=== PATIENT | female | born 1985 | race Caucasian/White ===

== ENCOUNTER 2017-04-18 15:13 | Observation (INO) ==
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
[2017-04-18] MEDS ORDERED: 0.9 % Sodium Chloride 1,000 ML IVC ONE (15:22)
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
[2017-04-18 16:06] LABS: Prothrombin Time 10.9 Seconds (9.4-12.1)
[2017-04-18] MEDS ORDERED: Ondansetron 4 MG/2 ML VIAL IVP ONE (16:06)
[2017-04-18 16:07] LABS: Basophils % 0.3 %; Eosinophils # 0.2 K/mcL (0.0-0.6); Hematocrit 35.2 % (35.3-44.9); Hemoglobin 11.7 g/dL (11.5-15.4); Immature Granulocytes % 0.6 % (0-4); Lymphocytes # 1.7 K/mcL (0.6-4.6); Lymphocytes % 10.8 %; Mean Corpuscular HGB Conc 33.2 g/dL (31.6-35.5); Mean Corpuscular Hemoglobin 30.4 pg (28.0-33.3); Mean Corpuscular Volume 91.4 fL (83.0-100.0); Mean Platelet Volume 11.1 fL (9.4-12.4); Monocytes # 0.9 K/mcL (0.0-1.3); Monocytes % 5.8 %; Neutrophils # 12.6 K/mcL (1.6-8.9); Platelet Count 183 K/mcL (140-400); Red Blood Count 3.85 M/mcL (3.82-4.97); Red Cell Distribution Width 13.5 % (11.5-14.5); Segmented Neutrophils % 81.5 %
[2017-04-18 16:16] LABS: Alanine Aminotransferase 65 Units/L (7-52); Albumin 3.5 g/dL (3.5-5.7); Albumin/Globulin Ratio 1.3 (1.1-2.2); Alkaline Phosphatase 167 Units/L (34-104); Aspartate Amino Transferase 60 Units/L (13-39); BUN/Creatinine Ratio 11 (6-26); Bilirubin,Total 0.4 mg/dL (0.3-1.0); Blood Urea Nitrogen 6 mg/dL (6-20); Calcium 8.7 mg/dL (8.6-10.3); Carbon Dioxide 23 mEq/L (23-29); Chloride 105 mEq/L (98-107); Globulin 2.8 g/dL (2.4-3.5); Glucose 78 mg/dL (70-105); Osmolality,Calculated 274 (280-300); Sodium 134 mEq/L (136-145); Total Protein 6.3 g/dL (6.4-8.9); eGFR For African Americans > 60 (> 60); eGFR For Non-African Americans > 60 (> 60)
[2017-04-18 16:22] LABS: Ethanol < 10 mg/dL (0-10)
[2017-04-18 16:40] LABS: Bilirubin,Urine Small (Negative); Blood,Urine Negative (Negative); Clarity,Urine Clear (Clear); Color,Urine Dark Yellow (Yellow); Glucose,Urine (UA) Normal (Normal); Ketones,Urine Negative (Negative); Leukocyte Esterase,Urine Negative (Negative); Nitrite,Urine Negative (Negative); PH,Urine 5.5 pH Units (5.0-8.0); Protein,Urine 30 mg/dL (Neg-Trace); Specific Gravity,Urine 1.028 (1.010-1.025); Urobilinogen,Urine Normal (Normal)
[2017-04-18 16:43] LABS: Amphetamine Screen,Urine Negative ng/mL (Cutoff=1000); Barbiturate Screen,Urine Negative ng/mL (Cutoff=200); Benzodiazepines Screen,Urine Negative ng/mL (Cutoff=200); Cannabinoid Screen,Urine Positive ng/mL (Cutoff = 50); Cocaine Screen,Urine Negative ng/mL (Cutoff= 300); Opiate Screen,Urine Positive ng/mL (Cutoff=300); Phencyclidine Screen,Urine Negative ng/mL (Cutoff=25)
[2017-04-18 16:46] LABS: Bacteria,Urine None Seen per hpf (None-Few); RBC,Urine 0-3 per hpf (0-3); Squamous Epithelial Cell,Urine Many per lpf (None-Few)
[2017-04-18 16:56] LABS: Granular Casts,Urine Few per lpf (None Seen); Hyaline Casts,Urine Few per lpf (None-Few)
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
[2017-04-18] MEDS ORDERED: *HR* Labetalol 100 MG/20 ML MDV IVP ONE (17:41)
[2017-04-18] MEDS ORDERED: HydrOXYzine 100 MG/2 ML VIAL IM ONE (17:54)
[2017-04-18 17:58] LABS: Magnesium 1.9 mg/dL (1.6-2.6); Uric Acid 2.7 mg/dL (2.3-7.6)
[2017-04-18 18:33] VITALS: BP 131/93
[2017-04-18 18:56] LABS: Phenytoin (Dilantin) < 0.5 mcg/mL (10.0-20.0)
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
== END 2017-04-18 20:39 | disposition home or self-care (01) ==
LOC: 1NENULAB 15:13 → EMEROO 15:13 → 1NENULAB 18:50

== ENCOUNTER 2017-12-25 21:23 | Observation (INO) ==
[2017-12-25] MEDS ORDERED: Ondansetron 4 MG/2 ML VIAL IVP ONE (22:19)
[2017-12-25] MEDS ORDERED: 0.9 % Sodium Chloride 1,000 ML IVC ONE (22:19)
[2017-12-25] MEDS ORDERED: *HR* FentaNYL (PF) 100 MCG/2 ML VIAL IVP ONE (22:19)
[2017-12-25] MEDS ORDERED: Isovue-370 500 ML INFUS..BTL IV ONE (22:22)
[2017-12-25] MEDS ORDERED: *HR* LORazepam 2 MG/ML VIAL IVP ONE (22:43)
[2017-12-25 23:42] LABS: Basophils % 0.2 %; Eosinophils % 0.1 %; Hematocrit 31.1 % (35.3-44.9); Hemoglobin 10.3 g/dL (11.5-15.4); Immature Granulocytes % 0.2 % (0-4); Lymphocytes # 1.2 K/mcL (0.6-4.6); Lymphocytes % 9.6 %; Mean Corpuscular HGB Conc 33.1 g/dL (31.6-35.5); Mean Corpuscular Volume 87.6 fL (83.0-100.0); Mean Platelet Volume 10.6 fL (9.4-12.4); Monocytes # 0.7 K/mcL (0.0-1.3); Monocytes % 5.7 %; Neutrophils # 10.3 K/mcL (1.6-8.9); Platelet Count 247 K/mcL (140-400); Red Blood Count 3.55 M/mcL (3.82-4.97); Red Cell Distribution Width 15.3 % (11.5-14.5); Segmented Neutrophils % 84.2 %
[2017-12-25 23:59] LABS: INR 1.1; Prothrombin Time 12.3 Seconds (9.4-12.1)
[2017-12-26 00:02] LABS: Activated Partial Thrombo Time 25.1 Seconds (26.0-36.0); Alanine Aminotransferase 33 Units/L (7-52); Albumin 3.8 g/dL (3.5-5.7); Albumin/Globulin Ratio 1.4 (1.1-2.2); Alkaline Phosphatase 62 Units/L (34-104); Aspartate Amino Transferase 34 Units/L (13-39); BUN/Creatinine Ratio 11 (6-26); Bilirubin,Direct 0.1 mg/dL (0.0-0.2); Bilirubin,Indirect 0.4 mg/dL (0.0-1.2); Bilirubin,Total 0.5 mg/dL (0.3-1.0); Blood Urea Nitrogen 10 mg/dL (6-20); Calcium 9.5 mg/dL (8.6-10.3); Carbon Dioxide 27 mEq/L (23-29); Chloride 104 mEq/L (98-107); Globulin 2.7 g/dL (2.4-3.5); Glucose 128 mg/dL (70-105); Lipase 16 Units/L (11-82); Osmolality,Calculated 283 (280-300); Potassium 4.4 mEq/L (3.5-5.1); Sodium 136 mEq/L (136-145); Total Protein 6.5 g/dL (6.4-8.9); eGFR For Non-African Americans > 60 (> 60)
[2017-12-26 00:03] LABS: Troponin I < 0.03 ng/mL (< 0.04)
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
--- NOTE | 2017-12-26 03:04 | Event Note ---
Date of Encounter: 12/26/17 Time of Encounter: 03:02 Called from the emergency room regarding patient who had a laparoscopic cholecystectomy be performed on 12/25/2017 a he presented with worsening abdominal pain. CT scan showed evidence of fluid in the pelvis and blood with clots noted and subhepatic space. Systolic blood pressure 100-110s and heart rate in the 70s. Laboratory studies shows a hemoglobin is 10.3. CT scan was performed with IV contrast and that was not a CTA protocol there was no evidence of active extravasation. Operative report demonstrates that the patient also had a liver biopsy due to nodular appearing liver. Likely the blood is secondary to bleeding from the gallbladder fossa or from the biopsy site but does not appear to be arterial in nature. Symptomatically stable and transported to the floor will be monitored. Repeat CBC and BMP at 5 AM. We will make Dr. Rodriguez aware this morning of the patient's re-presentation
[2017-12-26] MEDS ORDERED: 0.9 % Sodium Chloride 1,000 ML IVC ONE (03:06)
[2017-12-26] MEDS ORDERED: *HR* LORazepam 0.5 MG TABLET PO PRN (03:11)
[2017-12-26] MEDS ORDERED: Ondansetron 4 MG/2 ML VIAL IVP PRN (03:12)
[2017-12-26 06:31] LABS: Basophils % 0.2 %; Eosinophils # 0.1 K/mcL (0.0-0.6); Eosinophils % 0.6 %; Immature Granulocytes % 0.4 % (0-4); Lymphocytes # 1.9 K/mcL (0.6-4.6); Lymphocytes % 18.9 %; Mean Corpuscular Hemoglobin 28.1 pg (28.0-33.3); Mean Corpuscular Volume 87.7 fL (83.0-100.0); Mean Platelet Volume 10.9 fL (9.4-12.4); Monocytes # 0.6 K/mcL (0.0-1.3); Monocytes % 5.6 %; Neutrophils # 7.4 K/mcL (1.6-8.9); Platelet Count 220 K/mcL (140-400); Red Blood Count 2.85 M/mcL (3.82-4.97); Red Cell Distribution Width 15.9 % (11.5-14.5); Segmented Neutrophils % 74.3 %
[2017-12-26 06:55] LABS: BUN/Creatinine Ratio 13 (6-26); Blood Urea Nitrogen 9 mg/dL (6-20); Calcium 8.5 mg/dL (8.6-10.3); Carbon Dioxide 23 mEq/L (23-29); Chloride 109 mEq/L (98-107); Glucose 100 mg/dL (70-105); Osmolality,Calculated 285 (280-300); Potassium 4.2 mEq/L (3.5-5.1); Sodium 138 mEq/L (136-145); eGFR For Non-African Americans > 60 (> 60)
[2017-12-26] MEDS: 0.9 % Sodium Chloride 1,000 ML IVC SCH ×2 (07:55→11:19)
--- NOTE | 2017-12-26 07:59 | General Surg History&Physical ---
<Joshua Rendon R - Last Filed: 12/26/17 07:44> Date of Encounter: 12/26/17 Time of Encounter: 07:44 Assessment and Plan (1) Abdominal pain Current Visit: Yes Status: Acute The assessment and plan as outlined above was discussed with the patient and/or family members who expressed understanding and agreement. All questions were answered. CT scan of the abdomen and pelvis does reveal a moderate to large volume of acute hemorrhage in the abdomen. Will carefully follow patient and reassess. Plan: Comfort care and pain management IV fluids NPO prn antiemetic prn anxiolytic PPI prophylaxis Qualifiers: Abdominal location: generalized Qualified Code(s): R10.84 - Generalized abdominal pain (2) Acute blood loss anemia Current Visit: Yes Status: Acute The assessment and plan as outlined above was discussed with the patient and/or family members who expressed understanding and agreement. All questions were answered. Hemoglobin and hematocrit have decreased since both preoperative and last night ED evaluation. Most recent H/H is 8.0/25.0, vital signs are stable and within normal limits at present, patient is not symptomatic denies chest pain, dizziness, shortness of breath. Plan: Serial H/H Regular vital sign assessments Type and screen Will follow closely (3) DVT prophylaxis Current Visit: Yes Status: Acute The assessment and plan as outlined above was discussed with the patient and/or family members who expressed understanding and agreement. All questions were answered. EPCDs Ambulation as tolerated History of Present Illness Chief complaint: abdominal pain HPI: Ms. Connell is a 32 year old female with a history of hepatitis presenting for evaluation of abdominal pain. Patient did undergo outpatient laparoscopic cholecystectomy with Dr. Rodriguez yesterday on 12/25/2017. Liver biopsies were performed during operation due to nodular appearing liver. Hemostasis was obtained intraoperatively. Patient reports that she is only able to take 1 dose of the prescribed oxycodone and did experience persistent pain, stating she was unable to tolerate the pain at home. CT abdomen and pelvis was performed in the ED and did reveal moderate to large amount of acute hemorrhage within the abdomen and pelvis. ED hemoglobin and hematocrit were 10.3/31.1 respectively. LFTs and lipase were within normal limits. Patient did receive IV fentanyl and lorazepam in the ED. Patient was admitted to Dr. Rodriguez for further evaluation and management. Repeat hemoglobin and hematocrit this morning are 8.0/25.0 respectively. This AM patient was seen sleeping quietly in her room, after waking she did state that pain was very severe and 10/10 on pain scale, unable to localize pain. She denied nausea, vomiting, hematemesis, hematochezia. Denies fever or chills. Denies urinary symptoms. Past Med Surg Social Fam HX - Past Medical History Medical history: hepatitis, seizures Additional medical history: hep B Psychiatric history: anxiety, bipolar, depression, schizophrenia - Past Surgical History Surgical History: other Additional surgical history: left eye, neck surgery, - Social History Smoking Status: Current every day smoker Packs per day: 1 Smokeless Tobacco Status: No Alcohol use: none Drug use: none, IV Drug Use Medications and Allergies LevETIRAcetam [Keppra] 1,500 mg PO BID 09/02/17 [History] Gabapentin [Neurontin] 1,200 mg PO TID 12/25/17 [History] OxyCODONE/APAP 5/325 [Percocet 5/325 MG] 1 each PO Q6HR PRN 7 Days #20 tablet [Rx] 3 Allergy/AdvReac Type Severity Reaction Status Date / Time Amoxicillin Allergy Difficulty Verified 12/25/17 09:56 Breathing Penicillins Allergy Difficulty Verified 12/25/17 09:56 Breathing sulfamethoxazole Allergy Itching Verified 12/25/17 09:56 [From Bactrim] trimethoprim [From Bactrim] Allergy Itching Verified 12/25/17 09:56 Review of Systems All systems PM: The remainder of the systems were reviewed and are negative - Constitutional no chills, no fever(s) - Gastrointestinal abdominal pain, no change in bowel habits, no diarrhea, no hematemesis, no hematochezia, no nausea, no vomiting General Surgery Exam Initial Vital Signs Temp Pulse Resp BP Pulse Ox 98.2 F 91 24 112/70 100 12/25/17 21:26 12/25/17 21:26 12/25/17 21:26 12/25/17 21:26 12/25/17 21:26 - General physical appearance well nourished, moderate distress (Patient was sleeping comfortably upon entering the room, however apon arousal patient does demonstrate moderate distress and pain), moderate pain - Eyes PERRL, normal ocular movement - ENT normal mucosa, atraumatic, normocephalic - Neck trachea midline - Respiratory normal respiratory effort, clear to auscultation - Cardiovascular Cardiovascular exam: Present: RRR - Abdomen Abdomen general surgery: Present: bowel sounds present, soft, tender (Diffusely tender to palpation, without localization. Greater than expected postsurgical pain), guarding. Absent: distended, rebound Abdominal Tenderness: Present: diffusely - Incision Incision: Present: clean and dry, intact, approximated - Integumentary Integumentary general surgery: Present: warm and dry - Neurologic Present: CN 2-12 grossly intact - Musculoskeletal Present: normal posture - Psychiatric Psychiatric general surgery: Present: A&Ox3, speech is normal Results - Labs 12/26/17 06:03 12/26/17 06:03 Abnormal lab results RBC 2.85 M/mcL (3.82-4.97) L 12/26/17 06:03 Hgb 8.0 g/dL (11.5-15.4) L D 12/26/17 06:03 Hct 25.0 % (35.3-44.9) L 12/26/17 06:03 RDW 15.9 % (11.5-14.5) H 12/26/17 06:03 PT 12.3 Seconds (9.4-12.1) H 12/25/17 23:31 APTT 25.1 Seconds (26.0-36.0) L 12/25/17 23:31 Chloride 109 mEq/L (98-107) H 12/26/17 06:03 Calcium 8.5 mg/dL (8.6-10.3) L 12/26/17 06:03 Diabetes panel 12/26/17 Range/Units 06:03 Sodium 138 (136-145) mEq/L Potassium 4.2 (3.5-5.1) mEq/L Chloride 109 H (98-107) mEq/L Carbon Dioxide 23 (23-29) mEq/L BUN 9 (6-20) mg/dL Creatinine 0.71 (0.60-1.20) mg/dL Glucose 100 (70-105) mg/dL Calcium 8.5 L (8.6-10.3) mg/dL Calcium panel 12/26/17 Range/Units 06:03 Calcium 8.5 L (8.6-10.3) mg/dL Pituitary panel 12/26/17 Range/Units 06:03 Sodium 138 (136-145) mEq/L Potassium 4.2 (3.5-5.1) mEq/L Chloride 109 H (98-107) mEq/L Carbon Dioxide 23 (23-29) mEq/L BUN 9 (6-20) mg/dL Creatinine 0.71 (0.60-1.20) mg/dL Glucose 100 (70-105) mg/dL Calcium 8.5 L (8.6-10.3) mg/dL Adrenal panel 12/26/17 Range/Units 06:03 Sodium 138 (136-145) mEq/L Potassium 4.2 (3.5-5.1) mEq/L Chloride 109 H (98-107) mEq/L Carbon Dioxide 23 (23-29) mEq/L BUN 9 (6-20) mg/dL Creatinine 0.71 (0.60-1.20) mg/dL Glucose 100 (70-105) mg/dL Calcium 8.5 L (8.6-10.3) mg/dL All other labs normal. <Shon Rodriguez - Last Filed: 12/26/17 13:35> Date of Encounter: 12/26/17 History of Present Illness HPI: Ms. Connell is a 32 year old female Review of Systems All systems PM: The remainder of the systems were reviewed and are negative General Surgery Exam Initial Vital Signs Temp Pulse Resp BP Pulse Ox 98.2 F 91 24 112/70 100 12/25/17 21:26 12/25/17 21:26 12/25/17 21:26 12/25/17 21:26 12/25/17 21:26 Results - Labs 12/26/17 10:14 12/26/17 06:03 Abnormal lab results RBC 2.85 M/mcL (3.82-4.97) L 12/26/17 06:03 Hgb 8.0 g/dL (11.5-15.4) L 12/26/17 10:14 Hct 25.1 % (35.3-44.9) L 12/26/17 10:14 RDW 15.9 % (11.5-14.5) H 12/26/17 06:03 PT 12.3 Seconds (9.4-12.1) H 12/25/17 23:31 APTT 25.1 Seconds (26.0-36.0) L 12/25/17 23:31 Chloride 109 mEq/L (98-107) H 12/26/17 06:03 Calcium 8.5 mg/dL (8.6-10.3) L 12/26/17 06:03 Ur Specific Byron > 1.030 (1.010-1.025) H 12/26/17 11:28 Diabetes panel 12/26/17 Range/Units 06:03 Sodium 138 (136-145) mEq/L Potassium 4.2 (3.5-5.1) mEq/L Chloride 109 H (98-107) mEq/L Carbon Dioxide 23 (23-29) mEq/L BUN 9 (6-20) mg/dL Creatinine 0.71 (0.60-1.20) mg/dL Glucose 100 (70-105) mg/dL Calcium 8.5 L (8.6-10.3) mg/dL Calcium panel 12/26/17 Range/Units 06:03 Calcium 8.5 L (8.6-10.3) mg/dL Pituitary panel 12/26/17 Range/Units 06:03 Sodium 138 (136-145) mEq/L Potassium 4.2 (3.5-5.1) mEq/L Chloride 109 H (98-107) mEq/L Carbon Dioxide 23 (23-29) mEq/L BUN 9 (6-20) mg/dL Creatinine 0.71 (0.60-1.20) mg/dL Glucose 100 (70-105) mg/dL Calcium 8.5 L (8.6-10.3) mg/dL Adrenal panel 12/26/17 Range/Units 06:03 Sodium 138 (136-145) mEq/L Potassium 4.2 (3.5-5.1) mEq/L Chloride 109 H (98-107) mEq/L Carbon Dioxide 23 (23-29) mEq/L BUN 9 (6-20) mg/dL Creatinine 0.71 (0.60-1.20) mg/dL Glucose 100 (70-105) mg/dL Calcium 8.5 L (8.6-10.3) mg/dL All other labs normal. - Attending Attestation I examined this patient and my medical decision-making was reviewed with the Resident Physician. I agree with the documented findings, disposition and treatment plan as described except to the extent set forth below. The patient is seen and evaluated on morning rounds. I personally reviewed the CAT scan images. It appears as though she had postoperative bleeding secondary to fluid in the pelvis and drop in her hemoglobin and hematocrit. She will be placed on close clinical observation and serial hemoglobin and hematocrits. Okay to advance her diet. Shon Rodriguez MD FACS
[2017-12-26] MEDS: Pantoprazole 40 MG VIAL IVP SCH (08:59)
[2017-12-26] MEDS: MORPHINE SUL Oral CONC 10 MG/0.5 ML ORAL.SYG SL PRN ×3 (08:59→20:00)
[2017-12-26 11:19] LABS: Hematocrit 25.1 % (35.3-44.9)
[2017-12-26] MEDS: Gabapentin 400 MG CAPSULE PO SCH ×3 (11:19→20:00)
[2017-12-26] MEDS: levETIRAcetam 250 MG TABLET PO SCH ×2 (11:20→20:00)
[2017-12-26] MEDS ORDERED: Ketorolac 15 MG/ML VIAL IM SCH (12:00)
[2017-12-26 12:13] LABS: Bilirubin,Urine Negative (Negative); Blood,Urine Negative (Negative); Clarity,Urine Clear (Clear); Color,Urine Yellow (Yellow); Glucose,Urine (UA) Normal (Normal); Ketones,Urine Negative (Negative); Leukocyte Esterase,Urine Negative (Negative); Nitrite,Urine Negative (Negative); Protein,Urine Negative (Neg-Trace); Specific Gravity,Urine > 1.030 (1.010-1.025); Urobilinogen,Urine Normal (Normal)
[2017-12-26] MEDS ORDERED: 0.9 % Sodium Chloride 1,000 ML IVC SCH (13:21)
[2017-12-26 17:22] LABS: Hematocrit 22.1 % (35.3-44.9); Hemoglobin 6.9 g/dL (11.5-15.4)
[2017-12-26] MEDS: Ketorolac 15 MG/ML VIAL IVP SCH (17:41)
[2017-12-26] MEDS: *HR* LORazepam 2 MG/ML VIAL IVP PRN (18:27)
[2017-12-26 22:21] LABS: Hematocrit 22.6 % (35.3-44.9); Hemoglobin 6.9 g/dL (11.5-15.4)
[2017-12-27] MEDS: Ketorolac 15 MG/ML VIAL IVP SCH ×5 (00:20→23:33)
[2017-12-27] MEDS: 0.9 % Sodium Chloride 1,000 ML IVC SCH ×2 (00:22→13:36)
[2017-12-27] MEDS: Simethicone 80 MG TAB.CHEW PO PRN ×2 (00:25→23:34)
[2017-12-27] MEDS: MORPHINE SUL Oral CONC 10 MG/0.5 ML ORAL.SYG SL PRN (02:01)
[2017-12-27] MEDS: *HR* LORazepam 2 MG/ML VIAL IVP PRN ×3 (03:27→23:34)
[2017-12-27 05:52] LABS: Basophils % 0.4 %; Eosinophils # 0.1 K/mcL (0.0-0.6); Eosinophils % 1.8 %; Hematocrit 27.9 % (35.3-44.9); Immature Granulocytes % 0.3 % (0-4); Lymphocytes # 2.1 K/mcL (0.6-4.6); Mean Corpuscular HGB Conc 30.8 g/dL (31.6-35.5); Mean Corpuscular Hemoglobin 27.9 pg (28.0-33.3); Mean Corpuscular Volume 90.6 fL (83.0-100.0); Mean Platelet Volume 10.4 fL (9.4-12.4); Monocytes # 0.4 K/mcL (0.0-1.3); Neutrophils # 4.6 K/mcL (1.6-8.9); Platelet Count 203 K/mcL (140-400); Red Blood Count 3.08 M/mcL (3.82-4.97); Red Cell Distribution Width 16.3 % (11.5-14.5); Segmented Neutrophils % 62.5 %
[2017-12-27 05:58] LABS: BUN/Creatinine Ratio 14 (6-26); Blood Urea Nitrogen 11 mg/dL (6-20); Carbon Dioxide 23 mEq/L (23-29); Chloride 110 mEq/L (98-107); Potassium 4.3 mEq/L (3.5-5.1); Sodium 138 mEq/L (136-145)
[2017-12-27 05:59] LABS: Calcium 9.2 mg/dL (8.6-10.3); Glucose 80 mg/dL (70-105); Osmolality,Calculated 284 (280-300); eGFR For Non-African Americans > 60 (> 60)
[2017-12-27 06:01] LABS: Hemoglobin 8.6 g/dL (11.5-15.4)
[2017-12-27 10:20] LABS: Hematocrit 22.6 % (35.3-44.9); Hemoglobin 7.1 g/dL (11.5-15.4)
[2017-12-27] MEDS: levETIRAcetam 250 MG TABLET PO SCH ×2 (10:38→20:20)
[2017-12-27] MEDS: Pantoprazole 40 MG VIAL IVP SCH (10:38)
[2017-12-27] MEDS: Gabapentin 400 MG CAPSULE PO SCH ×3 (10:38→20:20)
[2017-12-27] MEDS ORDERED: *HR* Promethazine 25 MG/ML VIAL IVP PRN (13:54)
[2017-12-27] MEDS: *HR* OxyCODONE/APAP 5/325 TABLET PO PRN ×2 (14:33→20:21)
--- NOTE | 2017-12-27 15:09 | General Surgery Progress Note ---
<Joshua Rendon R - Last Filed: 12/27/17 15:07> Date of Encounter: 12/27/17 Time of Encounter: 14:15 - Assessment and Plan (1) Abdominal pain Current Visit: Yes Status: Acute Patient reporting improved pain Plan: Patient switched to oral pain medication Toradol scheduled Starting clear liquid diet prn antiemetic changed to phergan Qualifiers: Abdominal location: generalized Qualified Code(s): R10.84 - Generalized abdominal pain (2) Acute blood loss anemia Current Visit: Yes Status: Acute H/H has been stable, patient did refuse transfusion over night Will follow vital signs tonight Repeat Labs in a.m. (3) DVT prophylaxis Current Visit: Yes Status: Acute EPCDs Ambulation TID Subjective Patient reports: still having pain, pain is less, voiding w/o difficulty, flatus , afebrile Narrative: Patient reports pain improved from yesterday. Would like to start eating. Denies nausea, vomiting, dizziness, SOB, chest pain. Objective Vital Signs - Last 8 Hours Temp Pulse Resp BP Pulse Ox 12/27/17 10:50 98.0 F 88 16 104/65 12/27/17 07:41 97.9 F 85 16 99/53 95 Intake and Output 12/26/17 12/27/17 12/27/17 23:59 07:59 15:59 Intake Total 920 / 920 0 / 0 1000 / 1000 Output Total 300 / 300 0 / 0 Balance 620 / 620 0 / 0 1000 / 1000 Intake: IV Fluids 500 / 500 1000 / 1000 0.9 % Sodium Chloride 1,000 ML 500 / 500 1000 / 1000 @ 75 mls/hr IVC .[id number] DIEGO Rx #:[id number] Oral 420 / 420 0 / 0 Output: Urine 300 / 300 0 / 0 Other: Meal Lunch npo Percent of Meal Consumed 40% # Voids 2 # Bowel Movements 0 0 Blood Glucose* 93 - General physical appearance no distress, moderate pain - Eyes PERRL, normal ocular movement - ENT normal mucosa, atraumatic, normocephalic - Neck Neck exam: trachea midline - Respiratory normal expansion, normal respiratory effort, clear to auscultation - Cardiovascular Cardiovascular exam: Present: RRR - Abdomen Abdomen: Present: bowel sounds present, soft, tender (Expected post surgical tenderness) - Incision Incision: Present: clean and dry, intact, approximated - Integumentary no rash - Neurologic CN 2-12 grossly intact - Musculoskeletal normal posture - Psychiatric oriented to time, oriented to person, oriented to place, speech is normal - Labs 12/27/17 09:52 12/27/17 05:31 Diabetes panel 12/27/17 Range/Units 05:31 Sodium 138 (136-145) mEq/L Potassium 4.3 (3.5-5.1) mEq/L Chloride 110 H (98-107) mEq/L Carbon Dioxide 23 (23-29) mEq/L BUN 11 (6-20) mg/dL Creatinine 0.76 (0.60-1.20) mg/dL Glucose 80 (70-105) mg/dL Calcium 9.2 (8.6-10.3) mg/dL Calcium panel 12/27/17 Range/Units 05:31 Calcium 9.2 (8.6-10.3) mg/dL Pituitary panel 12/27/17 Range/Units 05:31 Sodium 138 (136-145) mEq/L Potassium 4.3 (3.5-5.1) mEq/L Chloride 110 H (98-107) mEq/L Carbon Dioxide 23 (23-29) mEq/L BUN 11 (6-20) mg/dL Creatinine 0.76 (0.60-1.20) mg/dL Glucose 80 (70-105) mg/dL Calcium 9.2 (8.6-10.3) mg/dL Adrenal panel 12/27/17 Range/Units 05:31 Sodium 138 (136-145) mEq/L Potassium 4.3 (3.5-5.1) mEq/L Chloride 110 H (98-107) mEq/L Carbon Dioxide 23 (23-29) mEq/L BUN 11 (6-20) mg/dL Creatinine 0.76 (0.60-1.20) mg/dL Glucose 80 (70-105) mg/dL Calcium 9.2 (8.6-10.3) mg/dL Consult Discharge Plan - Plan Referrals: NONE,PCP [Primary Care Provider] - <Samantha Manuel - Last Filed: 12/27/17 16:54> Date of Encounter: 12/27/17 - Assessment and Plan (1) Post-operative haemorrhage Current Visit: Yes Status: Acute Hb's essentially leveled off clears prn pain control OOB ambulate ok shower prn antiemetics sliv Qualifiers: Surgical complication system/body Area: digestive system Procedure type: digestive system Qualified Code(s): K91.840 - Postprocedural hemorrhage of a digestive system organ or structure following a digestive system procedure Subjective Patient reports: still having pain, pain is less, flatus Objective Vital Signs - Last 8 Hours Temp Pulse Resp BP 12/27/17 10:50 98.0 F 88 16 104/65 Intake and Output 12/27/17 12/27/17 12/27/17 07:59 15:59 23:59 Intake Total 0 / 0 1000 / 1000 Output Total 0 / 0 Balance 0 / 0 1000 / 1000 Intake: IV Fluids 1000 / 1000 0.9 % Sodium Chloride 1,000 ML 1000 / 1000 @ 75 mls/hr IVC .[id number] DIEGO Rx #:[id number] Oral 0 / 0 Output: Urine 0 / 0 Other: Meal npo # Bowel Movements 0 Blood Glucose* 93 - General physical appearance well developed, well nourished, no distress, moderate pain - Eyes PERRL, normal ocular movement - ENT normal mucosa, normocephalic - Neck Neck exam: trachea midline - Respiratory normal expansion, normal respiratory effort - Cardiovascular Cardiovascular exam: Present: RRR - Abdomen Abdomen: Present: bowel sounds present, soft, tender. Absent: distended, guarding, rebound - Incision Incision: Present: clean and dry, intact - Integumentary no rash - Neurologic CN 2-12 grossly intact - Musculoskeletal normal posture - Psychiatric oriented to time, memory intact - Labs 12/27/17 09:52 12/27/17 05:31 Diabetes panel 12/27/17 Range/Units 05:31 Sodium 138 (136-145) mEq/L Potassium 4.3 (3.5-5.1) mEq/L Chloride 110 H (98-107) mEq/L Carbon Dioxide 23 (23-29) mEq/L BUN 11 (6-20) mg/dL Creatinine 0.76 (0.60-1.20) mg/dL Glucose 80 (70-105) mg/dL Calcium 9.2 (8.6-10.3) mg/dL Calcium panel 12/27/17 Range/Units 05:31 Calcium 9.2 (8.6-10.3) mg/dL Pituitary panel 12/27/17 Range/Units 05:31 Sodium 138 (136-145) mEq/L Potassium 4.3 (3.5-5.1) mEq/L Chloride 110 H (98-107) mEq/L Carbon Dioxide 23 (23-29) mEq/L BUN 11 (6-20) mg/dL Creatinine 0.76 (0.60-1.20) mg/dL Glucose 80 (70-105) mg/dL Calcium 9.2 (8.6-10.3) mg/dL Adrenal panel 12/27/17 Range/Units 05:31 Sodium 138 (136-145) mEq/L Potassium 4.3 (3.5-5.1) mEq/L Chloride 110 H (98-107) mEq/L Carbon Dioxide 23 (23-29) mEq/L BUN 11 (6-20) mg/dL Creatinine 0.76 (0.60-1.20) mg/dL Glucose 80 (70-105) mg/dL Calcium 9.2 (8.6-10.3) mg/dL - Attending Attestation I examined this patient and my medical decision-making was reviewed with the Resident Physician. I agree with the documented findings, disposition and treatment plan as described except to the extent set forth below.
--- NOTE | 2017-12-27 15:58 | Electrocardiograph Report ---
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
[2017-12-27] MEDS ORDERED: 0.9 % Sodium Chloride 1,000 ML IVC SCH (17:09)
[2017-12-28] MEDS: *HR* OxyCODONE/APAP 5/325 TABLET PO PRN ×3 (04:00→15:07)
[2017-12-28 05:28] LABS: Basophils % 0.5 %; Eosinophils # 0.1 K/mcL (0.0-0.6); Eosinophils % 2.6 %; Hematocrit 23.4 % (35.3-44.9); Hemoglobin 7.3 g/dL (11.5-15.4); Immature Granulocytes % 0.3 % (0-4); Lymphocytes # 1.5 K/mcL (0.6-4.6); Lymphocytes % 38.1 %; Mean Corpuscular HGB Conc 31.2 g/dL (31.6-35.5); Mean Corpuscular Hemoglobin 28.2 pg (28.0-33.3); Mean Corpuscular Volume 90.3 fL (83.0-100.0); Mean Platelet Volume 10.7 fL (9.4-12.4); Monocytes # 0.3 K/mcL (0.0-1.3); Platelet Count 131 K/mcL (140-400); Red Blood Count 2.59 M/mcL (3.82-4.97); Red Cell Distribution Width 16.3 % (11.5-14.5); Segmented Neutrophils % 51.5 %
[2017-12-28 05:53] LABS: BUN/Creatinine Ratio 13 (6-26); Blood Urea Nitrogen 10 mg/dL (6-20); Calcium 8.3 mg/dL (8.6-10.3); Carbon Dioxide 26 mEq/L (23-29); Chloride 113 mEq/L (98-107); Glucose 98 mg/dL (70-105); Osmolality,Calculated 291 (280-300); Potassium 3.8 mEq/L (3.5-5.1); Sodium 141 mEq/L (136-145); eGFR For Non-African Americans > 60 (> 60)
[2017-12-28] MEDS: Ketorolac 15 MG/ML VIAL IVP SCH ×2 (06:04→12:36)
[2017-12-28] MEDS: levETIRAcetam 250 MG TABLET PO SCH (09:38)
[2017-12-28] MEDS: Gabapentin 400 MG CAPSULE PO SCH ×2 (09:38→15:07)
[2017-12-28] MEDS: Pantoprazole 40 MG VIAL IVP SCH (09:39)
[2017-12-28 14:49] VITALS: BP 120/70
[2017-12-28] MEDS: Simethicone 80 MG TAB.CHEW PO PRN (15:08)
--- NOTE | 2017-12-28 15:23 | Discharge Summary ---
<Samantha Manuel - Last Filed: 12/28/17 15:21> Orders not resulted at time of discharge: Pending orders 12/26/17 10:14 Red Blood Cells [BBK] Stat Type and Screen [BBK] Stat 12/26/17 11:32 Culture,Urine [RM] Stat 12/27/17 05:31 Keppra (Levetiracetam) AM 0400 12/28/17 12:56 Hemoglobin and Hematocrit [HEME] Routine Date of Encounter: 12/28/17 Time of Encounter: 15:00 - Discharge Diagnosis (1) Post-operative haemorrhage Priority: Primary Status: Acute Qualifiers: Surgical complication system/body Area: digestive system Procedure type: digestive system Qualified Code(s): K91.840 - Postprocedural hemorrhage of a digestive system organ or structure following a digestive system procedure General Surgery Exam Initial Vital Signs Temp Pulse Resp BP Pulse Ox 98.2 F 91 24 112/70 100 12/25/17 21:26 12/25/17 21:26 12/25/17 21:26 12/25/17 21:26 12/25/17 21:26 - General physical appearance well developed, well nourished, no distress, moderate pain - Eyes PERRL, normal ocular movement - ENT normal mucosa, normocephalic - Respiratory normal expansion, normal respiratory effort - Cardiovascular Cardiovascular exam: Present: RRR - Abdomen Abdomen general surgery: Present: bowel sounds present, soft, tender ( appropriate). Absent: guarding, rebound - Integumentary Integumentary general surgery: Present: warm and dry, no abnormal pigmentation. Absent: diaphoresis - Neurologic Present: CN 2-12 grossly intact - Psychiatric Psychiatric general surgery: Present: A&Ox3 - Hospital Course Hospital course: Ms. Connell is a 32 year old female admitted after cholecystectomy for abdominal pain. CT scan showed postoperative intraabdominal bleed. Hemoglobins were trended and stabilized. Pain controlled. Started on diet and tolerated. DC home in stable condition. 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 - Time Spent with Patient Total time spent providing and/or coordinating discharge services: Less than 30 minutes - Discharge Medications Prescriptions: HYDROcodone/Acet 5/325 mg [[place] 5-325 mg] 1 tab PO Q8H PRN 3 Days #7 tab PRN Reason: Breakthrough Pain Home Medications: LevETIRAcetam [Keppra] 1,500 mg PO BID 09/02/17 [History] Gabapentin [Neurontin] 1,200 mg PO TID 12/25/17 [History] OxyCODONE/APAP 5/325 [Percocet 5/325 MG] 1 each PO Q6HR PRN 7 Days #20 tablet [Rx] HYDROcodone/Acet 5/325 mg [[place] 5-325 mg] 1 tab PO Q8H PRN 3 Days #7 tab [Rx] Allergies/Adverse Reactions: 3 Allergy/AdvReac Type Severity Reaction Status Date / Time Amoxicillin Allergy Difficulty Verified 12/25/17 09:56 Breathing Penicillins Allergy Difficulty Verified 12/25/17 09:56 Breathing sulfamethoxazole Allergy Itching Verified 12/25/17 09:56 [From Bactrim] trimethoprim [From Bactrim] Allergy Itching Verified 12/25/17 09:56 Date of admission: 12/26/17 02:15 Primary care physician: PCP NONE Discharging clinician: Samantha Manuel Anticipated date of discharge: 12/28/17 Labs on day of discharge: Labs from last 24 hours 12/28/17 12/28/17 05:01 05:01 WBC 3.9 L RBC 2.59 L Hgb 7.3 L Hct 23.4 L MCV 90.3 MCH 28.2 MCHC 31.2 L RDW 16.3 H Plt Count 131 L MPV 10.7 Immature Gran % 0.3 Seg Neutrophils % 51.5 Lymphocytes % 38.1 Monocytes % 7.0 Eosinophils % 2.6 Basophils % 0.5 Neutrophils # 2.0 Lymphocytes # 1.5 Monocytes # 0.3 Eosinophils # 0.1 Basophils # 0.0 Sodium 141 Potassium 3.8 Chloride 113 H Carbon Dioxide 26 BUN 10 Creatinine 0.80 Est GFR ( Amer) > 60 Est GFR (Non-Af Amer) > 60 BUN/Creatinine Ratio 13 Glucose 98 Calculated Osmolality 291 Calcium 8.3 L Preliminary micro results at discharge 12/26/17 11:32 Urine Culture - Preliminary Urine,Clean Catch No growth. - Impressions ITS Impressions Abdomen/Pelvis CT 12/26/17 22:22 IMPRESSION: There is a moderate to large volume of acute hemorrhage in the abdomen and pelvis with higher attenuation hemorrhage in the nolan hepatis and sub hepatic space in this recent postoperative patient. This study was not performed as a CTA and therefore active arterial extravasation at the operative site is not well assessed. Critical results were called by Dr. Andrew Wagner MD to Robbin Robison on 12/26/2017 at 00:51. D/ / Andrew Wagner MD / Andrew Wagner MD Interpreting Provider: Andrew Wagner MD - Patient Status Disposition: Home, Self-Care Condition: Fair Overall status at discharge: patient is back to baseline - Discharge Instructions Follow Up With: NONE,PCP [Primary Care Provider] - Adri Patel, WATER PUMP OPERATOR [Advanced Practice Nurse] - (in 1 week for post op check) - Diet and Activity Activity: as per physical therapy Diet: advance to your usual diet - Attending Attestation I examined this patient and my medical decision-making was reviewed with the Resident Physician. I agree with the documented findings, disposition and treatment plan as described except to the extent set forth below. <Joshua Rendon R - Last Filed: 12/28/17 16:10> Orders not resulted at time of discharge: Pending orders 12/26/17 10:14 Red Blood Cells [BBK] Stat Type and Screen [BBK] Stat 12/26/17 11:32 Culture,Urine [RM] Stat 12/27/17 05:31 Keppra (Levetiracetam) AM 0400 Hemoglobin and Hematocrit were complete and stable prior to discharge Date of Encounter: 12/28/17 - Discharge Diagnosis (1) Abdominal pain Status: Acute Qualifiers: Abdominal location: generalized Qualified Code(s): R10.84 - Generalized abdominal pain (2) Acute blood loss anemia Status: Acute (3) DVT prophylaxis Status: Acute General Surgery Exam Initial Vital Signs Temp Pulse Resp BP Pulse Ox 98.2 F 91 24 112/70 100 12/25/17 21:26 12/25/17 21:26 12/25/17 21:26 12/25/17 21:26 12/25/17 21:26 - Hospital Course Hospital course: Ms. Connell is a 32 year old female - Time Spent with Patient Total time spent providing and/or coordinating discharge services: Date of admission: 12/26/17 02:15 Primary care physician: PCP NONE Labs on day of discharge: Labs from last 24 hours 12/28/17 12/28/17 12/28/17 15:43 05:01 05:01 WBC 3.9 L RBC 2.59 L Hgb 8.5 L 7.3 L Hct 27.8 L 23.4 L MCV 90.3 MCH 28.2 MCHC 31.2 L RDW 16.3 H Plt Count 131 L MPV 10.7 Immature Gran % 0.3 Seg Neutrophils % 51.5 Lymphocytes % 38.1 Monocytes % 7.0 Eosinophils % 2.6 Basophils % 0.5 Neutrophils # 2.0 Lymphocytes # 1.5 Monocytes # 0.3 Eosinophils # 0.1 Basophils # 0.0 Sodium 141 Potassium 3.8 Chloride 113 H Carbon Dioxide 26 BUN 10 Creatinine 0.80 Est GFR ( Amer) > 60 Est GFR (Non-Af Amer) > 60 BUN/Creatinine Ratio 13 Glucose 98 Calculated Osmolality 291 Calcium 8.3 L Preliminary micro results at discharge 12/26/17 11:32 Urine Culture - Preliminary Urine,Clean Catch No growth. - Impressions ITS Impressions Abdomen/Pelvis CT 12/26/17 22:22 IMPRESSION: There is a moderate to large volume of acute hemorrhage in the abdomen and pelvis with higher attenuation hemorrhage in the nolan hepatis and sub hepatic space in this recent postoperative patient. This study was not performed as a CTA and therefore active arterial extravasation at the operative site is not well assessed. Critical results were called by Dr. Anrdew Wagner MD to Robbin Robison on 12/26/2017 at 00:51. D/ / Andrew Wagner MD / Andrew Wagner MD Interpreting Provider: Andrew Wagner MD
[2017-12-28] MEDS: *HR* LORazepam 2 MG/ML VIAL IVP PRN (15:24)
[2017-12-28 15:58] LABS: Hematocrit 27.8 % (35.3-44.9); Hemoglobin 8.5 g/dL (11.5-15.4)
== END 2017-12-28 18:29 | disposition home or self-care (01) ==
LOC: EMEROOARM 21:23 → 3ANU 21:23
PROVIDERS: ADMIT Surgery; ATTEND Surgery